=== PATIENT | male | born 1950 | race Hispanic/Latino ===

== ENCOUNTER → 2017-08-10 | Outpatient (CLI) | payer MEDICARE ==
--- NOTE | 2017-08-10 11:29 | Diagnostic Imaging Report ---
PROCEDURE: Frontal and lateral views of the chest. COMPARISON: None. INDICATIONS: BRONCHITIS FINDINGS: Lines/tubes: None. Lungs: Low lung volumes. Minimal left basilar haziness. Pleura: There is no pleural effusion or pneumothorax. Heart and mediastinum: The heart and the mediastinum are normal. Bones: No acute bony abnormality. Degenerative changes of thoracic spine. IMPRESSION: Limited by low volumes. Minimal left basilar haziness, likely prominent cardiac fat-pad. Underlying atelectasis/pneumonia cannot be entirely excluded. Dictated by: Tan Rm M.D. on 08/10/2017 at 11:38 Electronically approved by: Tan Rm M.D. on 08/10/2017 at 11:38
== END ==
LOC: RAD 10:20
PROVIDERS: ATTEND Family Medicine
DX: J20.9 Acute bronchitis, unspecified (principal)
CPT/HCPCS: 71046

== ENCOUNTER 2020-03-04 05:34 | Observation (INO) | payer OTHER ==
[2020-02-29 10:10] LABS: BASOPHILS # (AUTO) 0.1 (0.0-0.1); BASOPHILS % 0.9 % (0.0-1.0); EOSINOPHILS # (AUTO) 0.3 (0.0-0.4); HEMATOCRIT 39.7 % (38.2-49.6); HEMOGLOBIN 13.6 g/dL (14.0-18.0); LYMPHOCYTES # (AUTO) 2.2 (1.0-3.2); LYMPHOCYTES % 27.9 % (18.0-39.1); MEAN CORPUSCULAR HEMOGLOBIN 31.4 pg (28-32); MEAN CORPUSCULAR HGB CONC 34.3 g/dL (31-35); MEAN CORPUSCULAR VOLUME 91.7 fL (81-99); MONOCYTES # (AUTO) 0.6 (0.2-0.8); NEUTROPHILS # (AUTO) 4.6 (2.1-6.9); NEUTROPHILS % 58.6 % (38.7-80.0); PLATELET COUNT 232 x10e3/uL (140-360); RED BLOOD COUNT 4.33 x10e6/uL (4.3-5.7); RED CELL DISTRIBUTION WIDTH 12.7 % (11.7-14.4)
[2020-02-29 10:31] LABS: ANION GAP 13.8 mmol/L (8-16); BLOOD UREA NITROGEN 13 mg/dL (7-26); BUN/CREATININE RATIO 15 (6-25); CALCIUM 9.5 mg/dL (8.4-10.2); CARBON DIOXIDE 23 mmol/L (22-29); CHLORIDE 106 mmol/L (98-107); CREATININE, SERUM 0.87 mg/dL (0.72-1.25); EST GLOMERULAR FILTRATION RATE > 60 ML/MIN (60-); GLUCOSE 163 mg/dL (74-118); POTASSIUM 3.8 mmol/L (3.5-5.1); SODIUM 139 mmol/L (136-145)
--- NOTE | 2020-02-29 10:56 | Diagnostic Imaging Report ---
EXAM: CHEST 2 VIEWS DATE: 02/29/2020 10:44 AM INDICATION: Preoperative evaluation COMPARISON: None FINDINGS: The trachea is midline. There is minimal elevation of the right hemidiaphragm. There is no evidence for large focal consolidation, pneumothorax, or significant pleural effusion. The cardiomediastinal silhouette and pulmonary vasculature are within normal limits. No acute osseous abnormality is identified. The surrounding soft tissues are unremarkable. IMPRESSION: No acute cardiopulmonary process identified. Signed by: Dr. Dwayne Saxena MD on 02/29/2020 10:53 AM
[~2020-03-04 05:34] MED LIST: ASPIRIN; CITALOPRAM HBR20 MG PO; CLOPIDOGREL75 MG PO; FENOFIBRATE145 MG; FOLIC ACID; JANUVIA100 MG PO; LOSARTAN POTASS50 MG; LOVASTATIN20 MG; METOPROLOL PO; MONTELUKAST SOD10 MG PO; [UNRECOGNIZED DRUG - OTHER]
[2020-03-04] MEDS ORDERED: AMLODIPINE BESYL5 MG PO (06:23)
[2020-03-04] MEDS ORDERED: [UNRECOGNIZED DRUG - OTHER] OS (06:23)
[2020-03-04] MEDS ORDERED: BUPIVACAINE 7.5MG/ML /DEXTROSE 82.5MG/ML 2 ML AMP INJ ONE (06:34)
[2020-03-04] MEDS ORDERED: SODIUM CHLORIDE 0.9% 500ML 500 ML ONE (06:43)
[2020-03-04] MEDS ORDERED: TRANEXAMIC ACID 1,000 MG/10 ML ML ONE (06:43)
[2020-03-04] MEDS ORDERED: VANCOMYCIN HCL 1,000 MG ONE (06:43)
[2020-03-04] MEDS ORDERED: GABAPENTIN 300 MG CAP ONE (06:44)
[2020-03-04] MEDS ORDERED: CEFAZOLIN SOD 1 GM/NS 50ML 100 ML IV ONE (06:44)
[2020-03-04] MEDS ORDERED: CELECOXIB 200 MG CAP ONE (06:44)
[2020-03-04] MEDS ORDERED: DEXAMETHASONE SOD PHOS 10 MG/1 ML VIAL ONE (06:44)
[2020-03-04] MEDS ORDERED: ROPIVACAINE 246.25 MG, EPINEPHRINE HCL 1:1000 1ML 0.5 MG, CLONIDINE HCL 0.08 MG, KETORO... INJ ONE ×5 (08:00)
[2020-03-04] MEDS ORDERED: DIPHENHYDRAMINE HCL INJ 50 MG/ML VIAL IV PRN (09:15)
[2020-03-04] MEDS ORDERED: DOCUSATE SODIUM 100 MG CAP PO PRN (09:15)
[2020-03-04] MEDS ORDERED: ACETAMINOPHEN 650 MG SUPP PR PRN (09:15)
[2020-03-04] MEDS ORDERED: KETOROLAC TROMETHAMINE 30 MG/ML VIAL IV PRN (09:15)
[2020-03-04] MEDS ORDERED: HYDROCODONE/APAP 5MG-325MG TAB PO PRN (09:15)
[2020-03-04] MEDS ORDERED: ONDANSETRON HCL INJ 2MG/ML 2ML 2 MG/ML VIAL IV PRN (09:15)
[2020-03-04] MEDS ORDERED: INSULIN REGULAR, HUMAN 100 UNIT/1 ML 3ML VIAL ONE (09:32)
--- NOTE | 2020-03-04 10:02 | Diagnostic Imaging Report ---
Exam: AP pelvis History: Postoperative evaluation Comparison: None. Findings: See impression Impression: Postoperative radiograph of a right total hip arthroplasty with intact components. No complication. Signed by: Dr. Tod Mccurdy M.D. on 03/04/2020 9:59 AM
--- OUTSIDE RECORDS SUMMARY | 2020-03-04 10:09 | XMS REPORT | Continuity of Care Document ---
Author Author [facility] Organization [facility] Address [address] [place] [address] [place] [phone] Phone Unavailable Care Team Providers Care Alloy Weigher Name Role Phone CHRISTIAN STOCK Attphys Unavailable Lorna COUGHLIN Attphys Unavailable KEVIN BRANTLEY Admphys Unavailable Problems This patient has no known problems. Allergies, Adverse Reactions, Alerts This patient has no known allergies or adverse reactions. Medications This patient has no known medications. Procedures This patient has no known procedures. Results Test Description Test Time Test Comments Results Result Comments Source PELVIS AP 1-2 VIEWS 2020-03-04 09:58:00 [facility] [address] [place] [id number] Patient Name: HENRY FARAH MR #: [id number] : 1950 Age/Sex: 70/M Req #: [id number] [facility] Physician: Ordered by: CHRISTIAN STOCK MD Report #: [id number] Location: OR Room/Bed: Procedure: [id number] DX/PELVIS AP 1-2 VIEWS Exam Date: 03/04/20 Exam Time: 935 REPORT STATUS: Signed Exam: AP pelvis History: Postoperative evaluation Comparison: None. Findings: See impression Impression: Postoperative radiograph of a right total hip arthroplasty with intact components. No complication. Signed by: Dr. Zelalem Michel M.D. on 03/04/2020 9:59 AM Dictated By: ZELALEM MICHEL MD 8 Transcribed By: TOMASZ on 03/04/20958 COPY TO: CHRISTIAN STOCK MD CHEST 2 VIEWS 2020-02-29 10:52:00 [facility] [address] [place] [address] Patient Name: HENRY FARAH MR #: [id number] : 1950 Age/Sex: 70/M Req #: [id number] Adm Physician: Ordered by: CHRISTIAN STOCK MD Report #: [id number] Location: OR Room/Bed: Procedure: [id number] DX/CHEST 2 VIEWS Exam Date: Exam Time: REPORT STATUS: Signed EXAM: CHEST 2 VIEWS DATE: 02/29/2020 10:44 AM INDICATION: Preoperative evaluation COMPARISON: None FINDINGS: The trachea is midline. There is minimal elevation of the right hemidiaphragm. There is no evidence for large focal consolidation, pneumothorax, or significant pleural effusion. The cardiomediastinal silhouette and pulmonary vasculature are within normal limits. No acute osseous abnormality is identified. The surrounding soft tissues are unremarkable. IMPRESSION: No acute cardiopulmonary process identified. Signed by: Dr. Dwayne Saxena MD on 02/29/2020 10:53 AM Dictated By: DWAYNE SAXENA MD 52 Transcribed By: TOMASZ on 02/29/201052 COPY TO: CHRISTIAN STOCK MD CHEST 2 VIEWS [place] [address] Patient Name: HENRY FARAH MR #: [id number] : 1950 Age/Sex: 67/M Req #: [id number] Adm Physician: Ordered by: WYATT COUGHLIN MD Report #: [id number] Location: [facility] Room/Bed: Procedure: [id number] DX/CHEST 2 VIEWS Exam Date: 08/10/17 Exam Time: 1020 REPORT STATUS: Signed PROCEDURE: Frontal and lateral views of the chest. COMPARISON: None. INDICATIONS: BRONCHITIS FINDINGS: Lines/tubes: None. Lungs: Low lung volumes. Minimal left basilar haziness. Pleura: There is no pleural effusion or pneumothorax. Heart and mediastinum: The heart and the mediastinum are normal. Bones: No acute bony abnormality. Degenerative changes of thoracic spine. IMPRESSION: Limited by low volumes. Minimal left basilar haziness, likely prominent cardiac fat-pad. Underlying atelectasis/pneumonia cannot be entirely excluded. Dictated by: Tan Rojas M.D. on 08/10/2017 at 11:38 Electronically approved by: Tan Rojas M.D. on 08/10/2017 at 11:38 Dictated By: TNA ROJAS MD 1138 Transcribed By: IVONNE on 08/10/17 1138 COPY TO: WYATT COUGHLIN MD
--- NOTE | 2020-03-04 10:16 | Operative Report ---
DATE OF PROCEDURE: 03/04/2020 SURGEON: Jomar Jasso MD CYBERATHLETE: Shay Farrell PA-C. PREOPERATIVE DIAGNOSIS: Osteoarthritis, right hip. POSTOPERATIVE DIAGNOSIS: Osteoarthritis, right hip. PROCEDURE: Right total hip arthroplasty. INDICATIONS: The patient is an active 70-year-old gentleman who has end-stage arthritis of both hips. He has failed conservative management and would like to proceed with a right total hip replacement. The risks and benefits of the procedure have been discussed. All of his questions have been answered. The implants, hospital stay, and recovery have been discussed. He states he understands and wishes to proceed. DESCRIPTION OF PROCEDURE: The patient was brought to the operating room and given a spinal anesthetic. He received prophylactic antibiotics and tranexamic acid in the holding area. He was positioned in the left lateral decubitus position. His right hip was prepped and draped in a sterile manner. A preoperative time-out was performed. A posterior approach was made to the right hip. Care was taken to avoid injury to the sciatic nerve. Hemostasis was obtained with electrocautery. He had more oozing from venous structures than usual. A Charnley self-retaining retractor was placed. His muscle quality was noted to be good. The hip was severely contracted. The posterior capsule was carefully exposed. Further hemostasis was obtained with electrocautery. The short external rotators were partially released. The capsule was released. The hip was dislocated and an oscillating saw was used to resect the femoral head. Acetabular retractors were carefully placed. There was markedly thickened and calcified labral remnant. This was excised with a long-handled knife. There was a large exostosis just at the superior rim of the socket. This was removed with a curved osteotome. The socket was then sequentially reamed to 53 mm. A [employer] system was used. There was a good hemispherical bleeding cancellous bone. The hip was thoroughly irrigated on several occasions with a shower tip pulsatile lavage. A 54 mm outer diameter socket was then impacted into place. Care was taken to make sure that there was no evidence of soft tissue interposition. The hip was further irrigated and fixation was augmented with a single 25 mm cancellous screw. A highly cross-linked polyethylene liner with a 36 mm inner diameter was then seated into place. Once again, care was taken to make sure that there was no evidence of soft tissue interposition. The socket was packed with a moistly soaked lap sponge. Attention was directed towards the proximal femur. A box cutting osteotome and taper pin reamer were used to establish entry to the femoral canal. The Taperloc broaches were impacted. A size 14 stem had good canal fill and rotational stability for trial reduction. A standard 36 mm head provided appropriate amish of limb length and stability. The trial implants were then all removed. The hip was further irrigated with the pulsatile lavage. The implants were seated. The femoral stem was then seated. The trunnion was irrigated and cleaned. The femoral head was seated onto the clean and dry stem. A final reduction was performed. Once again, the hip was put through a full arc of motion and noted to have good stability. The remnant of the posterior capsule was repaired with interrupted #2 Ethibond. The piriformis was too contracted to repair. A 500 mg of vancomycin powder was sprinkled into the deep wound. A 100 mL premixed pericapsular ZACKERY injection was placed into the surrounding soft tissue. The fascia was then closed with interrupted #2 Ethibond. The skin was closed with subcuticular Vicryl and luis alfredo. A sterile Aquacel bandage was applied. Estimated blood loss was 150 mL. All needle and sponge counts were correct. Jomar Jasso MD DR/VAISHNAVI /[id number]
[2020-03-04 10:23] VITALS: BP 90/62
--- NOTE | 2020-03-04 10:23 | NUR ---
Received patient from PACU. Right hip replacement with abductor pillow. Right Dorsalis pedis palpable. Respiration even and unlabored without SOB. Call light in reach.
[2020-03-04 10:32] VITALS: BP 90/62
[2020-03-04] MEDS: SODIUM CHLORIDE 0.9% 1000ML 1,000 ML IV SCH ×2 (11:07→21:25)
[2020-03-04] MEDS: ACETAMINOPHEN 1000 MG/100 ML IV PRN ×2 (12:41→16:00)
--- NOTE | 2020-03-04 14:49 | NUR ---
DR HARRIS OFFICE PREARRANGED FOLLOWING DISCHARGE PLAN OF:HOME [address] , [facility] WITH SIGNATURE CONFIRMED WITH [employer] [phone] DME 3 IN ONE COMMODE AND ROLLING WALKER WITH WHEELS. PROVIDED BY [employer] [place] [phone] DONIS SIGNED AND ON CHART COPY LEFT WITH PATIENT GAVE CARD FOR QUESTIONS AND OR CONCERNS.
[2020-03-04] MEDS: CEFAZOLIN SOD 1 GM/NS 50ML 50 ML IV SCH ×2 (14:51→21:32)
[2020-03-04] MEDS: CELECOXIB 100 MG CAP PO SCH (15:55)
[2020-03-04] MEDS: ASPIRIN 325 MG TAB PO SCH (15:55)
[2020-03-04 16:00] VITALS: BP 103/64
[2020-03-04] MEDS ORDERED: FENTANYL CITRATE/PF 100MCG/2 ML INJ ONE (17:37)
[2020-03-04] MEDS ORDERED: MIDAZOLAM HCL 2 MG/2 ML VIAL ONE (17:37)
[2020-03-04] MEDS ORDERED: ATROPINE SULFATE 1 MG/ML VIAL ONE (18:33)
--- NOTE | 2020-03-04 19:25 | NUR ---
BEDSIDE SHIFT REPORT RECEIVED FROM DAY RN. PT IS ALERT AND ORIENTED X3. RESPIRATIONS ARE EVEN AND UNLABORED. PT IS S/P RT TOTAL HIP. AQUACELE DRESSING TO RT HIP- DRY AND INTACT. 20 G PIV NS INFUSING AT 100 ML PER HR. SITE HEALTHY. PT VOIDING WITHOUT DIFFICULTY - URINAL. URINE IS CLEAR YELLOW IN COLOR.ABDUCTOR PILLOW ON IN BED. CALL LIGHT WITHIN REACH. BED IN LOW POSITION.
[2020-03-04 20:00] VITALS: BP 100/59
[2020-03-04] MEDS ORDERED: ZOLPIDEM TARTRATE 5 MG TAB PO PRN (21:00)
[2020-03-04] MEDS ORDERED: SIMVASTATIN 20 MG TAB PO SCH (21:00)
[2020-03-04] MEDS: HYDROCODONE/APAP 7.5MG-325MG 1 EA TAB PO PRN (21:36)
[2020-03-05] VITALS: BP 111/63
[2020-03-05] MEDS: HYDROCODONE/APAP 7.5MG-325MG 1 EA TAB PO PRN ×2 (02:59→10:33)
[2020-03-05] MEDS: SODIUM CHLORIDE 0.9% 1000ML 1,000 ML IV SCH (03:52)
[2020-03-05 04:00] VITALS: BP 114/74
--- NOTE | 2020-03-05 04:55 | Consultation ---
DATE OF CONSULTATION: REASON FOR CONSULTATION: Postop medical management. HISTORY OF PRESENT ILLNESS: The patient is a 70-year-old gentleman, who is status post right hip arthroplasty. He is doing well postoperatively. Complains of some pain in the right hip, but it is being controlled with p.o. medications, and he denies any fever, chills, nausea, vomiting, headache, shortness of breath, or dizziness. PAST MEDICAL HISTORY: Significant for diabetes, hypertension, hyperlipidemia, history of stroke. MEDICATIONS: See MAR. ALLERGIES: NONE. SOCIAL HISTORY: He is retired. He is . Nonsmoker. Denies any alcohol abuse. FAMILY HISTORY: Hypertension. PHYSICAL EXAMINATION: VITAL SIGNS: Temperature is 98.3, pulse 71, blood pressure 111/63, sats 100% room air. GENERAL: In no apparent distress, lying in bed. NECK: Supple. CARDIOVASCULAR: Regular rate and rhythm. LUNGS: Clear to auscultation bilaterally. ABDOMEN: Good bowel sounds. Soft, nontender. EXTREMITIES: No clubbing or cyanosis. NEUROLOGIC: Nonfocal. ASSESSMENT AND PLAN: 1. Status post right hip arthroplasty with right hip pain. Continue with physical therapy and pain control. 2. Anemia. Check a CBC. 3. Diabetes. Continue with current care and monitoring of his sugars. 4. Hypertension. Continue with current care and monitoring of his blood pressure. 5. Hyperlipidemia. Continue with his cholesterol medicine. Please see hospital chart for full details. MD SAMAN Pike/VAISHNAVI /[id number]
[2020-03-05 05:08] LABS: HEMOGLOBIN 10.7 g/dL (14.0-18.0)
[2020-03-05] MEDS: CEFAZOLIN SOD 1 GM/NS 50ML 50 ML IV SCH (05:42)
[2020-03-05 08:00] VITALS: BP 113/80
[2020-03-05] MEDS ORDERED: SITAGLIPTIN 100 MG TAB PO SCH (09:00)
[2020-03-05] MEDS ORDERED: [UNRECOGNIZED DRUG - OTHER] OP SCH (09:00)
[2020-03-05] MEDS ORDERED: FOLIC ACID 1 MG TAB PO SCH (09:00)
[2020-03-05] MEDS ORDERED: CITALOPRAM HYDROBROMIDE 20 MG TAB PO SCH (09:00)
[2020-03-05] MEDS ORDERED: MONTELUKAST SODIUM 10 MG TAB PO SCH (09:00)
[2020-03-05] MEDS ORDERED: AMLODIPINE BESYLATE 5 MG TAB PO SCH (09:00)
[2020-03-05] MEDS ORDERED: CLOPIDOGREL BISULFATE 75 MG TAB PO SCH (09:00)
[2020-03-05] MEDS ORDERED: METOPROLOL SUCCINATE 25 MG TAB XL PO SCH (09:00)
[2020-03-05] MEDS ORDERED: LOSARTAN POTASSIUM 100 MG TAB PO SCH (09:00)
[2020-03-05] MEDS ORDERED: FENOFIBRATE 145 MG TAB PO SCH (09:00)
[2020-03-05] MEDS: ASPIRIN 325 MG TAB PO SCH (09:08)
[2020-03-05] MEDS: CELECOXIB 100 MG CAP PO SCH (09:09)
[2020-03-05 09:15] VITALS: BP 113/80
--- NOTE | 2020-03-05 12:06 | NUR ---
Discharge education provided emphasizing the need to follow-up with Dr. Jasso in 1 week. Post-op hip surgery instructions provided with the discharge packet. Verbalized understanding. PIV to right hand discontinued, catheter tip intact, no bleeding noted. Transported patient via wheelchair to private vehicle with all personal belongings taken including walker, bedside commode and abductor pillow.
== END 2020-03-05 12:10 | disposition home or self-care (01) ==
LOC: OR 05:34 → PACU V 09:09 → MED/SURG 10:34
PROVIDERS: ADMIT Specialist; ATTEND Specialist
DX: M16.0 Bilateral primary osteoarthritis of hip (principal); E11.9 Type 2 diabetes mellitus without complications; I10 Essential (primary) hypertension; Z86.73 Personal history of transient ischemic attack (TIA), and cerebral infarction without residual deficits; E78.00 Pure hypercholesterolemia, unspecified; Z11.59 Encounter for screening for other viral diseases; Z01.812 Encounter for preprocedural laboratory examination
CPT/HCPCS: 36415; 71046; 72170; 80048; 82948; 85014; 85018; 85025; 86850; 86900; 86920; 93005; C1713; C1734; C1776; G0378; J0171; J0461; J0690; J1100; J1817; J1885; J2250; J2795; J3010; J3370; J7030; J7040; U0002

== ENCOUNTER 2020-04-09 10:12 | Outpatient (RCR) | payer OTHER ==
[~2020-04-09 10:12] MED LIST changes: +AMLODIPINE BESYL5 MG PO; +[UNRECOGNIZED DRUG - OTHER] OS
== END 2020-05-03 ==
LOC: PT 10:12
PROVIDERS: ATTEND Specialist
DX: Z96.641 Presence of right artificial hip joint (principal); M62.81 Muscle weakness (generalized)

== ENCOUNTER → 2021-11-11 | Outpatient (CLI) | payer OTHER | LOC: MRI 10:47 | PROVIDERS: ATTEND Family Medicine | DX: R42 Dizziness and giddiness (principal) | CPT/HCPCS: 70551 ==